=== PATIENT | female | born 1960 | race Caucasian/White ===

== ENCOUNTER → 2016-06-22 | Outpatient (CLI) | payer BC | LOC: MW.CHIM 16:20 | PROVIDERS: ATTEND Internal Medicine | DX: R00.2 Palpitations (principal) | CPT/HCPCS: 93005 ==

== ENCOUNTER → 2016-06-28 | Outpatient (CLI) | payer BC ==
--- NOTE | 2016-07-06 19:28 | ECHO ---
The echocardiogram report can be seen in this patient's EMR in the Reports section. NAVI
== END ==
LOC: MW.US 10:27
PROVIDERS: ATTEND Internal Medicine
DX: R00.2 Palpitations (principal)
CPT/HCPCS: 93270; 93306

== ENCOUNTER 2017-11-03 15:36 | Emergency (ER) | payer BC ==
--- NOTE | 2017-11-03 16:22 | EDM.PDOC ---
ED HPI GENERAL MEDICAL PROBLEM - General Chief Complaint: General Stated Complaint: DIZZY/WEIRD FEELING IN ARMS Time Seen by Provider: 11/03/17 16:10 Source of Information: Reports: Patient History Limitations: Reports: No Limitations - History of Present Illness INITIAL COMMENTS - FREE TEXT/NARRATIVE: HISTORY AND PHYSICAL: History of present illness: 57-year-old female with no significant past medical history presenting to the ER with symptoms of bilateral numbness and tingling extending from the hands up into the back. Patient states that the symptoms started this morning while she was at work, she was standing at work. There are no other associated symptoms, patient denies headaches, patient denies visual disturbance, patient denies any chest pain or any pain like symptoms. She denies any syncopal episodes or any focal neurological deficits. She states that she has had numbness and tingling episodes like this in the past as well she is unable to tell if there is any inciting triggers that cause her symptoms. She's not been diagnosed with any metabolic disorder, only medication she takes this for her stress incontinence. Review of systems: As per history of present illness and below otherwise all systems reviewed and negative. Past medical history: As per history of present illness and as reviewed below otherwise noncontributory. Surgical history: As per history of present illness and as reviewed below otherwise noncontributory. Social history: No reported history of drug or alcohol abuse. Family history: As per history of present illness and as reviewed below otherwise noncontributory. Physical exam: HEENT: Atraumatic, normocephalic, pupils reactive, negative for conjunctival pallor or scleral icterus, mucous membranes moist, throat clear, neck supple, nontender, trachea midline. Lungs: Clear to auscultation, breath sounds equal bilaterally, chest nontender. Heart: S1S2, regular, negative for clicks, rubs, or JVD. Abdomen: Soft, nondistended, nontender. Negative for masses or hepatosplenomegaly. Negative for costovertebral tenderness. Pelvis: Stable nontender. Genitourinary: Deferred. Rectal: Deferred. Extremities: Atraumatic, good strength, full range of motion,vascular unremarkable, patient does state that she still is having the numbness and tingling but does not change with movement of her upper extremities bilaterally Neuro: Awake, alert, oriented. Cranial nerves II through XII unremarkable. Cerebellum unremarkable. Motor and sensory unremarkable throughout. Exam nonfocal. Diagnostics: CBC, CMP, TSH, Troponin EKG Therapeutics: 10 mg Flexeril one time Impression: This is a 57-year-old female that is presenting with acute onset of bilateral numbness and tingling extending from her fingertips up to her back with no other associated symptom aside from some mild anxiety Plan: Given all of the labs are within normal limits, and the patient's EKG is within normal limits and there is no acute pathology that can account for her symptoms of numbness and tingling, patient will need to follow-up with her primary care provider for an outpatient workup for further assessment. Definitive disposition and diagnosis as appropriate pending reevaluation and review of above. - Related Data Allergies Allergy/AdvReac Type Severity Reaction Status Date / Time No Known Allergies Allergy Verified 11/03/17 15:42 Home Meds: Home Meds . 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 History: - Infectious Disease History Infectious Disease History: Reports: Chicken Pox - Past Surgical History Head Surgeries/Procedures: Reports: None Social & Family History - Family History Family Medical History: Noncontributory - Tobacco Use Smoking Status *Q: Never Smoker - Caffeine Use Caffeine Use: Reports: Coffee - Recreational Drug Use Recreational Drug Use: No ED ROS GENERAL - Review of Systems Review Of Systems: See Below ED EXAM, GENERAL - Physical Exam Exam: See Below Course - Vital Signs Last Recorded V/S: Last Vital Signs Temp 36.8 C 11/03/17 15:42 Pulse 102 H 11/03/17 15:42 Resp 21 H 11/03/17 15:42 BP 130/61 11/03/17 15:42 Pulse Ox 98 11/03/17 15:42 - Orders/Labs/Meds Orders: Active Orders 24 hr Category Date Time Status EKG Documentation Completion [RC] STAT Care 11/03/17 15:44 Active COMPREHENSIVE METABOLIC PN,CMP [CHEM] Stat Lab 11/03/17 16:16 Received TROPONIN I [CHEM] Stat Lab 11/03/17 16:16 Received TSH [CHEM] Stat Lab 11/03/17 16:16 Received Labs: Laboratory Tests 11/03/17 11/03/17 Range/Units 16:16 16:16 WBC 7.95 (4.0-11.0) K/uL RBC 4.34 (4.30-5.90) M/uL Hgb 13.3 (12.0-16.0) g/dL Hct 40.0 (36.0-46.0) % MCV 92.2 (80.0-98.0) fL MCH 30.6 (27.0-32.0) pg MCHC 33.3 (31.0-37.0) g/dL RDW Std Deviation 44.0 (28.0-62.0) fl RDW Coeff of Lise 13 (11.0-15.0) % Plt Count 223 (150-400) K/uL MPV 9.30 (7.40-12.00) fL Neut % (Auto) 69.1 (48.0-80.0) % Lymph % (Auto) 22.8 (16.0-40.0) % [place] % (Auto) 5.4 (0.0-15.0) % Eos % (Auto) 2.3 (0.0-7.0) % Baso % (Auto) 0.4 (0.0-1.5) % Neut # (Auto) 5.5 (1.4-5.7) K/uL Lymph # (Auto) 1.8 (0.6-2.4) K/uL [place] # (Auto) 0.4 (0.0-0.8) K/uL Eos # (Auto) 0.2 (0.0-0.7) K/uL Baso # (Auto) 0.0 (0.0-0.1) K/uL Nucleated RBC % 0.0 /100WBC Nucleated RBCs # 0 K/uL ESR 15 (0-29) mm/hr Meds: Medications Discontinued Medications Generic Name Dose Route Start Last Admin Trade Name Freq PRN Reason Stop Dose Admin Cyclobenzaprine HCl 10 mg 11/03/17 16:50 11/03/17 16:57 Flexeril PO 11/03/17 16:51 10 mg ONETIME ONE Administration Departure - Departure Time of Disposition: 19:30 Disposition: Home, Self-Care 01 Condition: Good Clinical Impression: Anxiety, Numbness and tingling of both upper extremities - Discharge Information Referrals: PCP,None [Primary Care Provider] - Alicaj Wray MD [Physician] - 3 Days Forms: ED Department Discharge Additional Instructions: You admitted to our ER secondary to bilateral numbness and tingling of both your hands and arms, all of the labs have come back within normal limits, your EKG also did not show any abnormal pathology that is concerning. At this point in time there is nothing from an ER perspective that would be needed to be done , recommend that you see your primary care provider for further workup including possibly getting a nerve conduction study. If you do end up having worsening of her symptoms, any neurological deficits or anything that is concerning to please return to the ER. The following information is given to patients seen in the emergency department who are being discharged to home. This information is to outline your options for follow-up care. We provide all patients seen in our emergency department with a follow-up referral. The need for follow-up, as well as the timing and circumstances, are variable depending upon the specifics of your emergency department visit. If you don't have a primary care physician on staff, we will provide you with a referral. We always advise you to contact your personal physician following an emergency department visit to inform them of the circumstance of the visit and for follow-up with them and/or the need for any referrals to a consulting specialist. The emergency department will also refer you to a specialist when appropriate. This referral assures that you have the opportunity for follow-up care with a specialist. All of these measure are taken in an effort to provide you with optimal care, which includes your follow-up. Under all circumstances we always encourage you to contact your private physician who remains a resource for coordinating your care. When calling for follow-up care, please make the office aware that this follow-up is from your recent emergency room visit. If for any reason you are refused follow-up, please contact the [facility] Emergency Department at and asked to speak to the emergency department charge nurse. - My Orders Last 24 Hours: My Active Orders 11/03/17 15:44 EKG Documentation Completion [RC] STAT 11/03/17 16:16 COMPREHENSIVE METABOLIC PN,CMP [CHEM] Stat TROPONIN I [CHEM] Stat TSH [CHEM] Stat - Assessment/Plan Last 24 Hours: My Active Orders 11/03/17 15:44 EKG Documentation Completion [RC] STAT 11/03/17 16:16 COMPREHENSIVE METABOLIC PN,CMP [CHEM] Stat TROPONIN I [CHEM] Stat TSH [CHEM] Stat
[2017-11-03] MEDS ORDERED: Cyclobenzaprine 10 MG Tab PO ONE (16:50)
[2017-11-03 17:00] LABS: CHLORIDE,CL 105 mmol/L (98-107); SODIUM,NA 139 mmol/L (136-145)
[2017-11-03 17:26] VITALS: BP 129/81
== END 2017-11-03 17:25 | disposition home or self-care (01) ==
LOC: MW.ED 15:36
DX: F41.9 Anxiety disorder, unspecified (principal); R20.0 Anesthesia of skin
CPT/HCPCS: 36415; 80053; 84443; 84484; 85025; 85652; 93005; 99284; A9270